=== PATIENT | male | born 2000 | race Caucasian/White ===

== ENCOUNTER 2019-03-04 21:18 | Inpatient (IN) | payer BC ==
[~2019-03-04] VITALS: Ht 198.1 cm; Wt 74.7 kg
[2019-03-05] VITALS (11 sets, daily range): BP systolic 105–128; BP diastolic 54–66; PULSE 69–96; TEMP 97.4–9806
--- NOTE | 2019-03-05 03:57 | NUR ---
Patient doing OK. Denies pain at this time. Resting in bed with right arm in sling. Patient NPO and is to have surgery at 0830. Call light within reach, will continue to monitor
--- NOTE | 2019-03-05 07:30 | NUR ---
Patient A&O, VSS. IV CDI fluids infusing. Denies pain and discomfort. Patient limiting movement as it results in pain. Right arm in sling. Right clavical noticiable fracture and raised. Patient is NPO for procedure. Family at the bedside. No further needs expressed from patient. Call light within reach
--- NOTE | 2019-03-05 07:45 | NUR ---
Patient down to surgery by bed. No further needs expressed from patient.
--- NOTE | 2019-03-05 12:15 | NUR ---
Patient to room 321-2 by bed from OR. Patient A&O, incision right upper chest CDI, right arm in a sling. CMS WNL. No further needs expressed from patient. Post op VS monitored. Call light within reach. Will continue to monitor
--- NOTE | 2019-03-05 15:30 | NUR ---
Discharge paperwork reviewed with patient and family. Patient verbalized an understanding of following doctors orders. IV removed, tip intact, gauze and bandaid applied, patient tolerated well. Personal belongings and discharge paperwork with patient. Patient education provided on incision care. No further needs expressed from patient. Patient transfered by nursing staff by wheelchair to vehicle.
== END 2019-03-05 15:30 | disposition home or self-care (01) | DRG 517 ==
LOC: COL.ER 21:18 → COL.AMSURD 21:18 → COL.ER 22:58 → SURG 22:58 → COL.ER 23:45 → SURG 23:45 → COL.AMSURD 03-05 08:36 → SURG 03-05 08:38
PROVIDERS: Orthopaedic Surgery
PROC: 0PS904Z Reposition Right Clavicle with Internal Fixation Device, Open Approach (ICD-10-PCS; principal; 2019-03-05 09:00)
DX: S42.021A Displaced fracture of shaft of right clavicle, initial encounter for closed fracture (principal); W03.XXXA Other fall on same level due to collision with another person, initial encounter; Y93.63 Activity, rugby; Y92.328 Other athletic field as the place of occurrence of the external cause
CPT/HCPCS: OP; C1713; J0690; J1100; J2250; J2270; J2405; J2704; J2795; J3010; J7030